=== PATIENT | female | born 1995 | race Caucasian/White ===

== ENCOUNTER 2019-08-27 18:58 | Emergency (ER) | payer SELFPAY ==
[~2019-08-27] VITALS: Ht 170.2 cm; Wt 50.8 kg
[2019-08-27 19:12] VITALS: BP 110/72
== END 2019-08-27 19:25 | disposition home or self-care (01) ==
LOC: ER 19:03
DX: L25.9 Unspecified contact dermatitis, unspecified cause (principal); Z60.2 Problems related to living alone

== ENCOUNTER 2019-11-27 05:12 | Emergency (ER) | payer MEDICAID ==
[~2019-11-27] VITALS: Ht 170.2 cm; Wt 49.0 kg
[2019-11-27 05:27] VITALS: BP 110/67
[2019-11-27] MEDS ORDERED: LORAZEPAM 0.5 MG TABLET ONE (05:36)
[2019-11-27] MEDS ORDERED: LORAZEPAM 1 MG TABLET PO ONE (06:00)
== END 2019-11-27 05:46 | disposition home or self-care (01) ==
LOC: ER 05:12
DX: F41.9 Anxiety disorder, unspecified (principal); Z60.2 Problems related to living alone

== ENCOUNTER 2020-01-02 23:43 | Emergency (ER) | payer MEDICAID ==
[~2020-01-02] VITALS: Ht 170.2 cm; Wt 47.6 kg
[2020-01-02 23:43] VITALS: BP 108/60
--- NOTE | 2020-01-03 00:23 | NUR ---
Patient discharged to home in stable condition. Written and verbal after care instructions given. Patient verbalizes understanding of instruction.
== END 2020-01-03 00:24 | disposition home or self-care (01) ==
LOC: ER 23:43
DX: R25.2 Cramp and spasm (principal); M79.622 Pain in left upper arm; Z60.2 Problems related to living alone

== ENCOUNTER 2020-04-15 02:25 | Emergency (ER) | payer MEDICAID, OTHER ==
[~2020-04-15] VITALS: Ht 170.2 cm; Wt 50.8 kg
[2020-04-15 02:26] VITALS: BP 120/78
[2020-04-15 02:48] LABS: APPEARANCE,URINE Clear (CLEAR); BILIRUBIN,URINE Negative (NEGATIVE); BLOOD, URINE Trace-intact Ery/uL (NEGATIVE); COLOR,URINE Yellow (YELLOW); KETONES,URINE Negative (NEGATIVE); LEUKOCYTE ESTERASE ,URINE Small (NEGATIVE); NITRITE, URINE Negative (NEGATIVE); PROTEIN,URINE Negative (NEGATIVE); UGLUCOSE Negative (NEGATIVE); UROBILINOGEN,URINE 0.2 EU/dL (0.2)
[2020-04-15 03:24] LABS: BACTERIA,URINE Few /HPF (None Seen); RBC,URINE 0-2 /HPF (0-2); SQUAMOUS EPITHELIAL CELL,UR Few /HPF (None Seen)
== END 2020-04-15 05:58 | disposition home or self-care (01) ==
LOC: ER 02:25
DX: N39.0 Urinary tract infection, site not specified (principal); F41.9 Anxiety disorder, unspecified; F17.200 Nicotine dependence, unspecified, uncomplicated; Z60.2 Problems related to living alone
CPT/HCPCS: 81000-TC; 84703-TC; 87086-TC; 87186-TC